=== PATIENT | female | born 1985 | race African-American/Black ===

== ENCOUNTER → 2016-11-12 | Outpatient (CLI) | payer BC ==
[2016-11-26 14:04] LABS: HPV 16 Not Detected (NOTDET); HPV 18 Not Detected (NOTDET)
== END | disposition home or self-care (01) ==
LOC: MW.CHOBGYN 10:23
PROVIDERS: ATTEND Nurse Practitioner Women's Health
DX: R10.2 Pelvic and perineal pain (principal)
CPT/HCPCS: 36415; 81001; 81025; 85025; 87480; 87510; 87624; 87660; G0145

== ENCOUNTER → 2016-11-17 | Outpatient (CLI) | payer BC ==
--- NOTE | 2016-11-17 17:10 | US ---
EXAMINATION: Transvaginal pelvic ultrasound. HISTORY: Pain COMPARISON: None TECHNIQUE: Grayscale and color Doppler images obtained of the pelvis transvaginally. FINDINGS: The uterus appears normal in size, contour, and echogenicity without a focal uterine mass. The endometrial stripe thickness measures 4 mm. There is a trace free pelvic fluid. Both the left and right ovaries are normal in size, contour, and echogenicity demonstrating normal c olor and spectral Doppler flow. No adnexal masses. IMPRESSION: Unremarkable pelvic ultrasound.
== END ==
LOC: MW.US 13:22
PROVIDERS: ATTEND Nurse Practitioner Women's Health
DX: R10.2 Pelvic and perineal pain (principal)
CPT/HCPCS: 76830; 76830-26